=== PATIENT | female | born 1965 ===

== ENCOUNTER 2024-07-24 06:30 | Day surgery (SDC) | payer BC, SELFPAY ==
[2024-07-24 11:18] LABS: Glucose - Point of Care 77 mg/dl (70-99)
== END 2024-07-24 12:50 | disposition home or self-care (01) ==
LOC: GI 06:30
PROVIDERS: ATTENDING PHYSICIAN Internal Medicine Gastroenterology
DX: Z12.11 Encounter for screening for malignant neoplasm of colon (principal); D12.5 Benign neoplasm of sigmoid colon; K64.8 Other hemorrhoids
CPT/HCPCS: 45385; 88305; 82962